=== PATIENT | male | born 1960 | race Caucasian/White ===

== ENCOUNTER 2018-05-21 23:52 | Observation (INO) ==
[~2018-05-21 23:52] MED LIST: LEXISCAN ONE
[2018-05-22] MEDS ORDERED: ASPIRIN PO ONE (00:05)
[2018-05-22] MEDS ORDERED: NITROGLYCERIN TOP ONE (00:08)
--- NOTE | 2018-05-22 00:10 | PROVIDER DOCUMENTATION ---
This chart was entered by [employer] Scribe, acting as scribe for Ryan Banegas MD. HPI-Chest Pain - General Chief Complaint: Chest Pain Stated Complaint: CP Time Seen by Provider: 05/21/18 23:57 Source: patient Allergies/Adverse Reactions: Patient Allergies Allergy/AdvReac Type Severity Reaction Status Date / Time ampicillin trihydrate * Allergy RASH Verified 05/22/18 00:34 [From Polycillin] Home Medications: Home Medication List Medication Instructions Recorded Confirmed Last Taken Type Metoprolol Succinate E.r. [Toprol 50 mg PO DAILY 03/30/14 05/22/18 03/29/14 17: 00 History Xl] PRAVAstatin [Pravachol] 40 mg PO QHS 03/30/14 05/22/18 03/29/14 History Telmisartan/Hydrochlorothiazid 1 each PO DAILY 03/30/14 05/22/18 03/30/14 07:00 History [Micardis Hct 80-12.5 mg Tablet] Aspirin [Aspirin EC] 325 mg PO DAILY #0 tablet. 04/01/14 05/22/18 Unknown Rx - History of Present Illness-CP Nature of Presenting Problem: 57 yom with cardiac stents presents to ed with cc of nonradiating central chest pain that started 45 min port captain at rest. Pt reports resolved now. Reports heaviness at the time and was nondiaphoretic. Hx of htn and dm. 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 Pt reports took two 81mg aspirin today. States has nitroglycerin in pocket but didn't take any. Denies sob,n,v. Reports his chest pain has been intermittent for sometime now but calmed down this week until 45 min port captain. Location: reports: substernal Chest Pain Radiation: reports: no radiation Quality of Pain: reports: pressure Severity in ED: mild Onset/Duration: this evening Timing: intermittent Context/Activities at Onset: reports: none Associated Symptoms: denies: abdominal pain, back pain, diaphoresis, fever/ chills Nitro Today/Relief: no nitro taken today Aspirin Treatment Today: 81 mg x 2 Similar Symptoms Previously?: Yes Recently Seen Here or By Another Healthcare Provider: Yes (camilla) Review of Systems - Adult - REVIEW OF SYSTEMS - ADULT Constitutional: denies: chills, fever, fatique Eyes: reports: no symptoms reported Ears, Nose, Mouth & Throat: reports: no symptoms reported Cardiovascular: reports: chest pain. denies: irregular heart rate, orthopnea, syncope Respiratory: denies: cough, dyspnea on exertion, pleurisy, shortness of breath, wheezing Gastrointestinal: denies: abdominal pain, nausea, vomiting Genitourinary: reports: no symptoms reported Musculoskeletal: denies: back pain, joint pain, neck pain Integumentary: reports: no symptoms reported Neurological: reports: no symptoms reported Psychiatric: reports: no symptoms reported Endocrine: reports: no symptoms reported Hematologic/Lymphatic: reports: no symptoms reported Allergic/Immunologic: reports: no symptoms reported All Other Systems: Reviewed and Negative Past History - Adult - PAST MEDICAL HISTORY-ADULT Review of Records: reports: Old Records Reviewed, Nursing Assessment Review, Medications Reviewed Major Childhood Illnesses: reports: denies history Cardiovascular: reports: CAD, HTN, hyperlipidemia Gastrointestinal: reports: GERD Endocrine/Immune: reports: Diabetes - PRIOR SURGERIES/PROCEDURES Surgical/Procedure History: reports: cardiac stent, tonsillectomy - PRIOR HOSPITALIZATIONS Prior Hospitalizations: reports: for similar symptoms - IMMUNIZATION STATUS Childhood Immunizations: See Nurse Assessment Flu Vaccine: See Nurse Assessment - FAMILY HISTORY Family History: reviewed, not pertinent - SOCIAL HISTORY Smoking: non-smoker Substance Use: none/never Physical Exam-General - PHYSICAL EXAM-ADULT Initial Vital Signs Reviewed: Yes - CONSTITUTIONAL General Appearance: appears well, alert, no apparent distress - EYES Eyes: PERRL/EOMI, pink conjunctivae - HEAD, EARS, NOSE, MOUTH & THROAT HENMT: moist mucous membranes - NECK Neck: non-tender, full range of motion, supple, normal inspection - RESPIRATORY Respiratory: chest non-tender, lungs clear, normal breath sounds, no pleuratic chest pain, no respiratory distress, no accessory muscle use - CARDIOVASCULAR Cardiovascular: normal peripheral pulses, regular rate, rhythm, no edema, no gallop, no JVD, no murmur - CHEST (BREASTS) Chest/Breast: deferred - GASTROINTESTINAL (ABDOMEN) Abdominal Exam: non tender, soft, no organomegaly, no pulsatile mass - MUSCULOSKELETAL Back Exam: normal inspection, no CVA tenderness, no vertebral tenderness Extremity: normal range of motion, non-tender, normal gait, normal inspection, no pedal edema, no calf tenderness - SKIN Integumentary: normal color, normal turgor, warm/dry - NEUROLOGIC Neurologic: grossly normal - PSYCHIATRIC Psych/Mental Status: normal mood/affect, normal thought content, normal thought process, oriented x 3 Progress - PLAN OF CARE/RESULTS Progress/Plan/Lab Results: Laboratory Results - last 24 hr 05/21/18 05/21/18 00:11 00:11 Creatine Kinase [address] 0[address]. Banegas reports Heart Score of 4. Result Diagrams: 05/22/18 00:11 05/22/18 00:11 - REASSESSMENT Reassessment #1 Time Reassessed: 01:10 (Pt blood pressure on arrival was 186/135 its now 145/ 103 still no chest pain at this time.) - EKG 1 Time of EKG reading by physician:: 23:58 EKG Read and Signed by:: Ryan Banegas EKG Interpretation (*Must complete 3 of following elements*): Abnormal ( inferior infarct age undetermined) Rate: 81 Rhythm: nsr [place]: left QRS: RBB, LVH - XRAY 1 XRAY: Bilateral XRAY Study: Chest Impression: Normal XRAY Interpretation: no acute disease-per Dr. Banegas - CONSULTS/PCP/HOSPITALIST Notification #1 *Consult/PCP/Hospitalist*: Dr Hartley, hospitalist Time Discussed: 03:10 Consult Disposition: Admit Departure - Departure Date of Disposition Decision: 05/22/18 Time of Disposition Decision: 02:18 DIAGNOSIS: Chest pain Qualifiers: Chest pain type: unspecified Qualified Code(s): R07.9 - Chest pain, unspecified CAD (coronary artery disease) Qualifiers: Coronary Disease-Associated Artery/Lesion type: unspecified vessel or lesion type [place] vs. transplanted heart: [place] heart Associated angina: angina presence unspecified Qualified Code(s): I25.10 - Atherosclerotic heart disease of [place] coronary artery without angina pectoris Hypertension Qualifiers: Hypertension type: unspecified Qualified Code(s): I10 - Essential (primary) hypertension Disposition: ADMITTED INPATIENT 09 Certified Medical Emergency: Emergent Condition: Stable - Critical Care Note This patient required my direct & personal management of CC.: No Attestation - Physician/ JARAD Attestation Patient care was provided by Advanced Practice Provider:: No The physician spent face to face time with patient:: Yes Advanced Practice Provider documentation review:: Supervising physician onsite and consulted in the evaluation and care of this patient. The physician did have a face to face encounter with the patient. This chart was documented by the indicated scribe, ([employer] Scribe) and accurately reflects the services I performed and decisions made by me, Ryan Banegas MD, as attested by the provider's signature.
[2018-05-22 00:50] LABS: AGAP 12; ALBUMIN 4.1 g/dL (3.5-5.0); ALKALINE PHOSPHATASE 64 U/L (32-122); BUN 18 mg/dL (8-22); CALCIUM 9.4 mg/dL (8.8-10.2); CHLORIDE 100 mmol/L (98-107); COSMO 280; ESTIMATED GFR > 60; GLUCOSE 101 mg/dL (70-104); GOT 26 U/L (10-34); GPT 44 U/L (10-44); POTASSIUM 3.8 mmol/L (3.5-5.1); SODIUM 139 mmol/L (136-145); TCO2 28 mmol/L (25-35); TOTAL PROTEIN 7.2 g/dL (6.3-8.3)
[2018-05-22 01:08] LABS: BASO# 0.02 X1000 (0.0-0.2); BASO% 0.2 % (0.0-0.8); EOS# 0.35 X1000 (0.0-0.7); EOS% 3.8 % (0.0-10.0); HEMATOCRIT 48.3 % (42.0-52.0); HEMOGLOBIN 16.4 g/dL (14.0-18.0); IMM GRAN# 0.03 X1000 (0.0-0.04); IMM GRAN% 0.3 % (0.0-0.5); LYMPH# 2.72 X1000 (1.2-3.4); LYMPH% 29.8 % (20.5-51.1); MCH 29.4 PG (27-31); MCV 86.6 FL (81-99); MONO# 1.17 X1000 (0.11-0.59); MONO% 12.8 % (1.7-9.3); MPV 9.6 FL (7.4-10.4); NEUT# 4.83 X1000 (1.4-6.5); NEUT% 53.1 % (42.2-75.2); PLT 208 X1000 (130-400); RBC 5.58 XMIL (4.7-6.1); RDW 13.5 % (11.5-14.5); WBC 9.12 X1000 (4.8-10.8)
[2018-05-22] MEDS ORDERED: ZOFRAN IV PRN (02:20)
[2018-05-22] MEDS ORDERED: MORPHINE IV PRN ×2 (02:20→08:31)
--- NOTE | 2018-05-22 08:15 | Diag Imaging Result Doc PS360 ---
EXAM: CHEST-PORTABLE INDICATION: chest pain TECHNIQUE: One view COMPARISON: 06/11/2016 FINDINGS: The lungs are grossly clear. There is no discrete pleural fluid collection or pneumothorax. The cardiomediastinal silhouette and central vasculature are grossly unremarkable. IMPRESSION: No evidence of acute pathology by plain radiograph. Electronically signed by Chi Michaels 05/22/2018 8:13 AM
--- NOTE | 2018-05-22 08:37 | EKG Report ---
Test Performed on : 05/21/2018 11:58:55 PM Test Reason : cp Blood Pressure : / mmHG Vent. Rate : 081 BPM Atrial Rate : 081 BPM P-R Int : 190 ms QRS Dur : 112 ms QT Int : 398 ms P-R-T Axes : 000 -36 -11 degrees QTc Int : 462 ms Normal sinus rhythm. Left axis deviation Right bundle branch block Minimal voltage criteria for LVH, may be normal variant Inferior infarct , age undetermined Abnormal ECG When compared with ECG of 31-MAR-2014 06:39, QRS duration has decreased Inferior infarct is now present Unconfirmed Result
--- NOTE | 2018-05-22 08:54 | EKG Report ---
Test Performed on : 05/22/2018 08:54:07 AM Test Reason : follow up Blood Pressure : / mmHG Vent. Rate : 060 BPM Atrial Rate : 060 BPM P-R Int : 200 ms QRS Dur : 146 ms QT Int : 468 ms P-R-T Axes : 064 -31 -18 degrees QTc Int : 468 ms Normal sinus rhythm. Left axis deviation Right bundle branch block Minimal voltage criteria for LVH, may be normal variant Abnormal ECG When compared with ECG of 21-MAY-2018 23:58, (Unconfirmed) QRS duration has increased Confirmed by Jeramie López MD ([id number]) on 05/24/2018 9:46:14 AM
[2018-05-22] MEDS: NS 1,000 ML IV SCH (09:53)
--- NOTE | 2018-05-22 10:06 | HISTORY AND PHYSICAL ---
CHIEF COMPLAINT: Chest pain. HISTORY OF PRESENT ILLNESS: Mr. Jaquez is a 57-year-old male who carries a past medical history of coronary artery disease, status post stenting, GERD, for which he no longer takes a PPI and relies on apple cider vinegar occasionally, hypertension, and hyperlipidemia. The patient stated around 10:30 last evening, he had about a 10-minute episode of severe epigastric chest pain. About [address] to the ED, his pain went from a 10/10 to a 2/10. There was no associated nausea or vomiting, no diaphoresis. The pain did not radiate anywhere. He reported eating some buffalo chicken from [employer] for lunch and then for dinner he had beans and corn. He reported feeling the need to belch prior to the pain starting, but he could not make himself belch. He stated this was not like his previous MIs. He has had 2 sets of negative troponins and 2 EKGs that showed normal sinus rhythm, and clear chest x-ray. He will be admitted in observation status for chest pain rule out. PAST MEDICAL HISTORY: 1. Hypertension. 2. Hyperlipidemia. 3. Coronary artery disease, status post stenting. 4. GERD, for which the patient no longer takes PPI. He will occasionally take apple cider vinegar. PAST SURGICAL HISTORY: Stenting. FAMILY HISTORY: Father with coronary artery disease and [place] at an early age. SOCIAL HISTORY: The patient is from [place]. He is . He has 2 grown children. No alcohol, tobacco, or illicit drug use. He works 3rd shift. ALLERGIES: Polycillin. HOME MEDICATIONS: 1. Aspirin 81 mg p.o. t.i.d. 2. Plavix 75 mg p.o. daily. 3. Hydrochlorothiazide 12.5 mg p.o. q.a.m. 4. Toprol-XL 50 mg p.o. daily. 5. Micardis 80 mg p.o. daily. PHYSICAL EXAMINATION: VITAL SIGNS: Temperature 97.3 degrees, heart rate 72, respirations 18, blood pressure 146/96, O2 100% on room air. GENERAL: Mr. Prescott is a pleasant 57-year-old male who is lying in the bed on his left side, in no acute distress. No chest pain. HEENT: Atraumatic, normocephalic. PERRL. NECK: Supple. Trachea midline. CARDIOVASCULAR: S1, S2 appreciated. No murmurs, gallops, or rubs noted. No JVD. No lower extremity edema. PULMONARY: Bilateral breath sounds clear to auscultation. No rales, rhonchi, or wheezes. GASTROINTESTINAL: Soft, nontender, nondistended. Positive bowel sounds 4 quadrants. EXTREMITIES: Negative for edema. Bilateral pedal pulses are palpable. No signs of cyanosis. SKIN: Warm, dry, and intact. NEUROLOGICAL: No focal deficits noted. Patient alert and oriented x4. Follows commands. Moves all extremities. DIAGNOSTIC DATA: Chest x-ray shows no evidence of acute pathology. First EKG normal sinus rhythm with a left axis deviation and right bundle branch block at 81 beats per minute, QTc 462 seconds. Second EKG normal sinus rhythm with a left axis deviation and right bundle branch block at 60 beats per minute with a QTc of 468. Follow-up chest x-ray pending. Echocardiogram pending. LABORATORY DATA: White count 9, hemoglobin and hematocrit 16 and 48, platelet count 208,000. Chemistry: Sodium 139, potassium 3.8, BUN 18, creatinine 1, blood glucose 101. Troponin 0.018, second troponin 0.030, third troponin 0.027. ASSESSMENT AND PLAN: 1. Chest pain in a patient with known coronary artery disease status post stenting. Will continue to trend his cardiac enzymes. He is currently pain free. Continue with his home medication. Check an echocardiogram. Keep him nothing by mouth for possible stress test. Continue intravenous fluids. 2. Gastroesophageal reflux disease. The patient is noncompliant with GERD lifestyle changes. He no longer takes proton pump inhibitor. He takes apple cider vinegar on occasion. He did have buffalo chicken as well as corn and beans yesterday, and did complain of feeling the need to belch right before his chest pain. We will continue with intravenous proton pump inhibitor with Protonix. 3. Hypertension. Continue home medications. 4. Hyperlipidemia. Will check a lipid profile. The patient is not currently on a statin. 5. Diabetes mellitus. Will continue to check pattern blood sugars and place him on sliding scale insulin. Will check a hemoglobin A1c today. Further recommendations to follow physician evaluation, laboratory and diagnostic data. Dictated by CARLA Monroy for Vitor Hartley MD cc: Vitor Hartley MD
--- NOTE | 2018-05-22 12:08 | PROGRESS NOTE ---
DATE: 05/22/2018 The patient came in with chest pain. He has known coronary artery disease. He has had 3 stents. He came in with some atypical chest pain but it is somewhat similar to his previous anginal equivalent including just kind of pain in the center of his chest, which he has dismissed previously. He has GERD. His workup was negative. Cardiac enzymes are negative. Exam is unremarkable. His EKG showed normal sinus rhythm, possibly an inferior AL. It looks like he has got a right bundle. In any case, the patient will be admitted and treated. He is placed in observation for chest pain. We will get a stress test and echocardiogram, and further recommendations from there. cc: MD Santino Rosado MD
[2018-05-22] MEDS: ASPIRIN EC PO SCH ×2 (14:58→16:41)
[2018-05-22] MEDS: SODIUM CHLORIDE 0.9% INJ SCH (15:08)
[2018-05-22] MEDS: TOPROL XL PO SCH (15:09)
[2018-05-22] MEDS: PROTONIX IV SCH ×2 (15:09→20:38)
[2018-05-22] MEDS: HYDROCHLOROTHIAZIDE PO SCH (15:09)
[2018-05-22] MEDS: MICARDIS PO SCH (15:09)
[2018-05-22] MEDS: PLAVIX PO SCH (15:09)
[2018-05-22] MEDS: RANEXA PO SCH ×2 (15:09→20:32)
--- NOTE | 2018-05-22 23:15 | GRADED EXERCISE REPORT ---
DATE: 05/21/2018 STUDY PERFORMED: Lexiscan GXT. FINDINGS: Discharge baseline EKG shows right bundle, no other specific. Heart rate 68. Blood pressure 132/71. Lexiscan was administered at 0.4 mg. he did developed a little bit of ST depression in his inferior leads but in the presence of the right bundle block. He did develop some mild chest discomfort after about a couple of minutes of the testing, which resolved spontaneously. The test is felt to be electrically negative. Mild clinical positivity. Peak heart rate 101. Peak blood pressure was 153/101. Myocardial perfusion reported separately. cc: Vitor Hartley MD MTDD
--- NOTE | 2018-05-23 01:26 | Diag Imaging Result Document ---
PROCEDURE NAME: MYOCARDIAL PERF SCAN, STR/REST - 05/22/2018 INDICATION: Chest pain. PROCEDURES PERFORMED: 1. Lexiscan stress. 2. One-day stress rest myocardial perfusion imaging. PROCEDURE DETAIL: Mr. Jaquez was brought to the nuclear laboratory and had a resting study with injection of 16.2 mCi of technetium-99m sestamibi with usual imaging protocol utilized. He subsequently was brought back and had a Lexiscan stress and at peak stress was injected with 45.9 mCi of technetium-99m sestamibi with usual imaging protocol utilized FINDINGS: LEXISCAN STRESS RESULTS: This study was dictated separately by primary physician. PERFUSION IMAGING RESULTS: 1. No evidence of abnormal extracardiac uptake. 2. TID ratio is 1.39. On review of splash images there is some suggestion of transient ischemic dilatation. 3. Perfusion imaging shows a moderate sized, moderate intensity, reversible defect located in the mid anterior, anterior apical, apical, and portions of the anterior septal. This is largely reversible suggesting ischemia. 4. There is a normal ejection fraction of 53%. The end-diastolic volume is 94, end systolic volume 34. There are wall motion abnormalities noted in the distal anterior wall as well as the anterior septum. cc: MD Vitor Nuñez MD
--- NOTE | 2018-05-23 02:11 | ECHO REPORT ---
ORDER DATE: 05/22/2018 INDICATION: Chest pain. FINDINGS: 1. Right atrium is normal in size at 3.9 cm. 2. Mild tricuspid regurgitation. 3. Normal RV size and systolic function. 4. Trace pulmonic insufficiency. 5. Mild left atrial enlargement at 4.9 cm. 6. No mitral valve prolapse. Mild mitral regurgitation. 7. Normal LV size. End-diastolic dimension of 4.2. Moderate left ventricular hypertrophy, with a posterior and interventricular septal wall thickness of 1.6 cm each. Normal LV systolic function. Estimated EF of 65%. Definity echo contrast was used on this study, and there is no clear evidence of wall motion abnormalities. 8. The aortic valve opens well. It is trileaflet. No evidence of stenosis or insufficiency. 9. The aorta appears normal in visualized segments. 10. No pericardial effusion seen. cc: Sterling Christensen MD
[2018-05-23] MEDS: NS 1,000 ML IV SCH (02:51)
[2018-05-23 06:40] LABS: HEMATOCRIT 43.6 % (42.0-52.0); HEMOGLOBIN 14.4 g/dL (14.0-18.0); MCH 28.7 PG (27-31); MPV 9.4 FL (7.4-10.4); RBC 5.01 XMIL (4.7-6.1); RDW 13.6 % (11.5-14.5); WBC 8.03 X1000 (4.8-10.8)
[2018-05-23 06:53] LABS: AGAP 9; BUN 17 mg/dL (8-22); CALCIUM 8.7 mg/dL (8.8-10.2); CHLORIDE 105 mmol/L (98-107); CHOLESTEROL 151 mg/dL (0-200); COSMO 278; ESTIMATED GFR > 60; GLUCOSE 87 mg/dL (70-104); HDL 32 mg/dL (35-55); LDL 88 mg/dL; SODIUM 139 mmol/L (136-145); TCO2 26 mmol/L (25-35); TRIGLYCERIDES 153 mg/dL (39-160); VLDL 31 mg/dL
[2018-05-23 06:58] LABS: HEMOGLOBIN A1C 5.4 % (4.8-6.0)
[2018-05-23] MEDS: RANEXA PO SCH (09:00)
[2018-05-23] MEDS: ASPIRIN EC PO SCH ×2 (09:00→13:07)
[2018-05-23] MEDS: PLAVIX PO SCH (09:00)
[2018-05-23] MEDS ORDERED: PRAVACHOL PO SCH (09:00)
[2018-05-23] MEDS: PROTONIX IV SCH (09:00)
[2018-05-23] MEDS ORDERED: PATIENT'S OWN MED PO SCH (09:00)
[2018-05-23] MEDS: SODIUM CHLORIDE 0.9% INJ SCH (09:00)
[2018-05-23] MEDS: HYDROCHLOROTHIAZIDE PO SCH (09:00)
[2018-05-23] MEDS: TOPROL XL PO SCH (09:00)
[2018-05-23] MEDS: MICARDIS PO SCH (09:00)
[2018-05-23] MEDS ORDERED: FISH OIL CONCENTRATE PO SCH (09:00)
[2018-05-23 12:27] VITALS: BP 153/88
--- NOTE | 2018-05-23 17:30 | CONSULTATION ---
DATE OF CONSULTATION: 05/23/2018 IMPRESSION: 1. Unstable angina. Patient presented with new recurrence of angina that spontaneous resolved. Subsequent Lexiscan myocardial perfusion study indicated inducible ischemia in the anterior wall. 2. Atherosclerotic coronary disease. Patient is status post multiple previous coronary angioplasty/stent procedures by Dr. Giovanny Osorio in [place]. He has had previous drug- eluting stents in left circumflex coronary, drug-eluting stent to the right coronary, and most recently had a drug-eluting stent to left anterior descending coronary in 2014. 3. Obesity. 4. Hyperlipidemia. 5. Probable obstructive sleep apnea. RECOMMENDATIONS: Given clinical presentation and abnormal Lexiscan myocardial perfusion study showing inducible ischemia anterior wall, favor pursuit of cardiac catheterization/coronary angiography. It is quite likely that he would require percutaneous coronary intervention. This was discussed at length with him including potential hazards of invasive management of coronary disease. He expressed preference to transfer to [place] under care of Dr. Giovanny Osorio. I subsequently contacted Dr. Osorio who agrees to accept him for further care in transfer. HISTORY: This 57-year-old white male with past history of atherosclerotic coronary disease as outlined above, hypertension, hyperlipidemia, and obesity was admitted day before yesterday to [facility] after he presented automobile after an episode of severe chest pain. He relates that 2 days ago while at rest he experienced substernal chest heaviness that was rated as a 10 on a scale of 10. There was no radiation. There is a little shortness of breath with this. He was about to take a sublingual nitroglycerin and call an ambulance. His symptoms spontaneously resolved. He came to the emergency room by automobile and had benign lab and ECG in the emergency room. He was admitted for observation and further workup. Yesterday while having echocardiography had a slight recurrence of chest discomfort rated as a 3 on a scale of 10. He had Lexiscan sestamibi study yesterday after serial cardiac enzymes were negative. Lexiscan sestamibi study indicated inducible ischemia in the anterior wall. For this reason, Cardiology was consulted. He does have history of difficulty with sleep, interrupted sleep, and prominent snoring. Underlying sleep apnea suspected. PAST MEDICAL HISTORY: 1. Atherosclerotic coronary disease as outlined above. 2. Hypertension. 3. Hyperlipidemia. 4. Obesity. 5. Gastroesophageal reflux disease. ALLERGIES: He is allergic or intolerant of Polycillin. MEDICATIONS PRIOR TO ADMISSION: As listed. He has continued on aspirin and Plavix in addition to hydrochlorothiazide, metoprolol and Micardis. SOCIAL HISTORY: He lives in [place] and is . 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 He does not smoke or use alcohol. FAMILY HISTORY: Positive for coronary disease. REVIEW OF SYSTEMS: Pulmonary: Negative beyond history of present illness. Gastrointestinal: Negative beyond history of present illness. Constitutional: Negative beyond history of present illness. Remainder of review of systems negative beyond history of present illness with 14 total systems reviewed. PHYSICAL EXAMINATION: General: This is an obese middle-aged white male in no distress on room air. Vital signs: Blood pressure 149/90, heart rate 80, oxygen saturation 97% on room air. HEENT: Extraocular movements intact. Mucous membranes are moist. Neck: Supple without jugular venous distention. There are no carotid bruits. Chest: Clear to auscultation bilaterally. Cardiac Exam: Reveals a regular rate and rhythm without appreciable murmur or gallop. Abdomen: Soft, nontender. Bowel sounds are normal. Extremities: Without edema. Neurologic: Reveals him to be alert and fully oriented. Speech is fluent. Moves all 4 extremities equally well. Skin: Warm and dry. Psychiatric: Reveals mood to be appropriate. DATA: 12 lead EKG demonstrates sinus rhythm, left axis deviation, right bundle branch block. LABORATORY DATA: Includes a white blood cell count 8.03, hematocrit 43.6, hemoglobin 14.4, platelet count 201,000. Sodium 139, potassium 4.0, chloride 105, carbon dioxide 26, BUN 17, creatinine 1.0, glucose 87. Hemoglobin A1c 5.4, initial troponin 0.018, followup troponin 0.035. Initial CPK 132, followup CPK 93. Fasting triglycerides 153, cholesterol 151, LDL cholesterol 88, HDL cholesterol 32. cc: Jurgen Poe MD
--- NOTE | 2018-05-24 06:17 | DISCHARGE SUMMARY ---
ADMISSION DATE: 05/21/2018 DISCHARGE DATE: 05/23/2018 PROBLEM: Atypical chest pain likely due to unstable angina. PROCEDURES: 1. Myocardial perfusion stress imaging which showed a moderate sized, moderate intensity reversible defect in the mid anterior apical, apical and portions of anterior septal. This is largely reversible suggesting ischemia with an EF of 50%. Wall motion abnormalities noted distal anterior wall and anterior septum. 2. Echocardiogram showed an intact EF at 50 to 65 percent, and there was no wall motion abnormalities. HISTORY: However, the patient presented on the 1st with some atypical chest pain probably thought it was reflux. However, because of his risk factors and it had been close to a year, we went ahead and progressed with a perfusion scan which showed a moderate-sized defect. Dr. Poe evaluated the patient on the , and arranged for transfer to [facility] under the care per Dr. Osorio who is actually not [facility], and greatly appreciate his assistance for cardiac catheterization and most likely percutaneous intervention. Family was aware of diagnosis. Now, they were transferred by their own vehicle because there was concern with the ambulance service that they could not afford a transfer fee. Further care will be per her [facility] Dr. Osorio. cc: MD Merlene Rosado MD
== END 2018-05-23 15:40 | disposition short-term general hospital (02) ==
LOC: P.ED 23:52 → P.MEDSURG 23:52
PROVIDERS: ATTEND Internal Medicine
CPT/HCPCS: 71010; 71045; 78452; 80048; 80053; 80061; 82550; 82948; 83036; 83880; 84484; 85025; 85027; 93005; 93010; 93306; 94761; 99285; A9270; A9500; C8929; C9113; J2785; J7030; Q9957; S0164; XXXXX